=== PATIENT | male | born 1970 | race Caucasian/White ===

== ENCOUNTER 2019-03-16 09:05 | Day surgery (SDC) | payer BC ==
[~2019-03-16] VITALS: Ht 190.5 cm; Wt 126.0 kg
[~2019-03-16 09:05] MED LIST: ASPIRIN E.C. 8181 MG PO; HCTZ 25MG TAB25 MG PO; LOPRESSOR100 MG PO; TAPAZOLE10 MG PO; ZESTRIL 20MG TA20 MG PO
[2019-03-16] MEDS ORDERED: XARELTO20 MG PO (09:39)
[2019-03-16] MEDS ORDERED: CORDARONE200 MG/TAB PO (09:40)
[2019-03-16 09:42] LABS: INR 1.8 (0.8-3.0); PROTHROMBIN TIME 21.9 SECONDS (9.7-12.8)
[2019-03-16] MEDS ORDERED: MULTI VITAMINS1 TAB PO (09:43)
[2019-03-16 09:45] LABS: POTASSIUM 4.4 mmol/L (3.4-5.0)
[2019-03-16 09:49] VITALS: BP 124/73; PULSE 82; TEMP 97.9
[2019-03-16 09:58] VITALS: BP 124/73; PULSE 82
--- NOTE | 2019-03-16 10:03 | NUR ---
Pt here for FARIDA/CV with Dr. Davidson and Anesthesia associates [employer].
[2019-03-16 10:34] LABS: THYROID STIMULATING HORMONE < 0.015 uIU/mL (0.465-4.680)
[2019-03-16] MEDS ORDERED: LOPRESSOR100 MG PO (11:01)
[2019-03-16 11:10] VITALS: BP 112/65; PULSE 80
--- NOTE | 2019-03-16 11:10 | NUR ---
CV complete and report received from Eufemia Slade RN. Pt fernando CV well. Pt resting in bed, at bedside.
[2019-03-16 11:25] VITALS: BP 115/71; PULSE 59
[2019-03-16 11:40] VITALS: BP 110/71; PULSE 55
[2019-03-16 11:55] VITALS: BP 115/73; PULSE 58
--- NOTE | 2019-03-16 12:00 | NUR ---
Pt has ambulated voided and fernando PO intake s n/v. PIV removed from L FA with catheter intact.
--- NOTE | 2019-03-16 12:15 | NUR ---
Pt discharged per w/c by nurse with .
== END 2019-03-17 10:56 | disposition home or self-care (01) ==
LOC: COL.CAR 09:05
PROVIDERS: Internal Medicine Cardiovascular Disease
DX: I48.19 Other persistent atrial fibrillation (principal); I10 Essential (primary) hypertension; G47.33 Obstructive sleep apnea (adult) (pediatric); E66.9 Obesity, unspecified; R53.83 Other fatigue; Z88.5 Allergy status to narcotic agent; Z79.01 Long term (current) use of anticoagulants; E05.00 Thyrotoxicosis with diffuse goiter without thyrotoxic crisis or storm
CPT/HCPCS: J2704; J7120

== ENCOUNTER → 2020-11-22 | Outpatient (CLI) | payer BC ==
[~2020-11-22] MED LIST changes: +CORDARONE200 MG/TAB PO; +LEVAQUIN 5500 MG/TA1 PO; +MULTI VITAMINS1 TAB PO; +NAPROSYN500 MG PO; +NORCO 325 MG-51 TAB PO; +XARELTO20 MG PO
== END ==
LOC: COL.RAD 13:43
DX: N45.1 Epididymitis (principal); N49.2 Inflammatory disorders of scrotum

== ENCOUNTER 2020-11-27 15:12 | Day surgery (SDC) | payer BC ==
[~2020-11-27] VITALS: Ht 190.5 cm; Wt 143.8 kg
[~2020-11-27 15:12] MED LIST changes: -LEVAQUIN 5500 MG/TA1 PO; -NAPROSYN500 MG PO; -NORCO 325 MG-51 TAB PO
[2020-11-27 16:16] VITALS: BP 149/93; PULSE 83; TEMP 98.5
[2020-11-27] MEDS ORDERED: LEVAQUIN 5500 MG/TA1 PO (16:30)
[2020-11-27] MEDS ORDERED: NAPROSYN500 MG PO (16:30)
[2020-11-27] MEDS ORDERED: NORCO 325 MG-51 TAB PO (16:31)
[2020-11-27] MEDS ORDERED: LOPRESSOR100 MG PO (16:32)
[2020-11-27 18:53] VITALS: BP 119/53; PULSE 85; TEMP 97.8
[2020-11-27 19:23] VITALS: BP 115/81; PULSE 74
[2020-11-27 20:10] VITALS: BP 111/71; PULSE 101; TEMP 97.8
[2020-11-27 20:23] VITALS: BP 109/77; PULSE 86
[2020-11-27 21:23] VITALS: BP 111/77; PULSE 106
--- NOTE | 2020-11-27 21:40 | NUR ---
Pt. laying in bed at this time. Pt. is A&OX3, assessment complete. INT to lt. hand patent. Pt. reports pain to rt. groin at a 5 on pain scale, gave pain meds per orders. Dressing to rt. groin CDI. Pt. wearing scrotal support at this time. Pt. denies further needs, call light within reach.
[2020-11-28 00:10] VITALS: BP 79/49; PULSE 92; TEMP 98.1
[2020-11-28 01:53] VITALS: BP 117/79
[2020-11-28 03:59] VITALS: BP 121/73; PULSE 74; TEMP 97.5
[2020-11-28 07:22] VITALS: BP 133/86; PULSE 86; TEMP 98.8
--- NOTE | 2020-11-28 09:20 | NUR ---
Nichols drain removed without difficulty - pt tolerated removal well. New jockstrap and gauze applied, minimal serosanguineous drainage from drain site. Pt had BM without difficulty
--- NOTE | 2020-11-28 09:45 | NUR ---
MD Tra stating pt to go home continuing Levofloxacin antibiotic that pt was taking prior to hospitalization
--- NOTE | 2020-11-28 10:28 | NUR ---
Initial visit; Patient doing well and hopes to be discharged. Patient thanked [employer] Set [employer] for stopping by and was receptive to having [employer] Line Set Up [employer]ic keep him and his son who is in the in her prayers.
== END 2020-11-28 10:15 | disposition hospice, home (50) ==
LOC: SDCO 15:12 → SURG 19:19 → SDCO 11-28 10:15
DX: N44.2 Benign cyst of testis (principal); N45.3 Epididymo-orchitis; I10 Essential (primary) hypertension; I48.91 Unspecified atrial fibrillation; E05.00 Thyrotoxicosis with diffuse goiter without thyrotoxic crisis or storm; Z20.822 Contact with and (suspected) exposure to COVID-19; E66.9 Obesity, unspecified; Z68.36 Body mass index [BMI] 36.0-36.9, adult; Z79.899 Other long term (current) drug therapy; Z79.01 Long term (current) use of anticoagulants
CPT/HCPCS: OP; A9284; J0690; J0696; J1100; J1885; J2250; J2405; J2704; J3010; J7120

== ENCOUNTER 2023-02-25 15:22 | Outpatient (RCR) | payer BC ==
[~2023-02-25] VITALS: Ht 190.5 cm; Wt 168.0 kg
[~2023-02-25 15:22] MED LIST changes: +LASIX 40MG TABL40 MG PO; +LEVAQUIN 5500 MG/TA1 PO; +NAPROSYN500 MG PO; +NORCO 325 MG-51 TAB PO; +SOLU-MEDR500 IV; +SYNTHROID0.2 MG/TAB PO
[2023-02-25 15:37] VITALS: BP 114/76; PULSE 78; TEMP 98.8
== END 2023-02-25 16:11 | disposition home or self-care (01) ==
LOC: EUO 15:22
DX: E05.00 Thyrotoxicosis with diffuse goiter without thyrotoxic crisis or storm (principal); H05.243 Constant exophthalmos, bilateral
CPT/HCPCS: J2930; J7050